=== PATIENT | female | born 1980 | race Caucasian/White ===

== ENCOUNTER 2022-08-15 18:17 | Emergency (ER) | payer OTHER, MEDICAID, SELFPAY ==
[2022-08-15 18:43] VITALS: BP 138/90; PULSE 82; RESP 16; TEMP 37.1; O2SAT 100
--- NOTE | 2022-08-15 19:28 | ED.URI ---
HPI - URI/Sore Throat General Chief Complaint: Upper Respiratory Infection Stated Complaint: nasal congestion Time Seen by Provider: 08/15/22 19:29 Source: patient and RN notes reviewed Mode of arrival: ambulatory Limitations: no limitations History of Present Illness HPI Narrative: 42 y/o female presented for c/o sinus congestion, drainage, cough and left ear pain for 3 days. Denies sob, wheezing, n/v/d/f/c. Endorses sick contact with flu. MD elicited complaint: cough Related Data Allergies Allergy/AdvReac Type Severity Reaction Status Date / Time codeine AdvReac Mild Nausea Verified 08/15/22 18:47 ibuprofen AdvReac Mild Ulcers Verified 08/15/22 18:47 Review of Systems Review of Systems: ROS per HPI PMFSH Family History Family History Mother Depression Hypertension Family history of gastrointestinal disorder Patient's mother is in good health Family history of irritable bowel syndrome Father Patient's father is in good health Family history of hearing loss Sibling Patient's brother is in good health Family history of attention deficit hyperactivity disorder (ADHD) Grandparent Family history of alcoholism Family history of lung cancer, Onset Age: 62 Family history of hearing loss Diabetes mellitus Other Family history of obesity Social History Social History Alcohol intake: never Exam Narrative: GENERAL: Ill-appearing, nontoxic EYES: PERRLA, conjunctivae clear ENT: Mucous membranes moist. Right TM pearly chavis with dull light reflex; Left TM red and bulging with purulent effusion; no tragal tenderness. CHEST: Clear to auscultation, breath sounds equal. HEART: Regular rate and rhythm. No murmur heard. SKIN: Warm, dry, no rash. NEURO: Alert and oriented x3. PSYCH: Normal mood and affect Course Course Emergency Course: Patient is aware of diagnosis, understands and agrees to treatment plan. Anticipatory guidance given. Patient agrees to follow-up as directed and is aware of reasons to seek care at the emergency department. Portions of this record may have been created with voice recognition software Level of Care: Express Care Visit Vital Signs Vital signs: Vital Signs Temperature 98.7 F 08/15/22 18:43 Pulse Rate 82 11/21/22 18:43 Respiratory Rate 16 08/15/22 18:43 Blood Pressure 138/90 08/15/22 18:43 Pulse Oximetry 100 08/15/22 18:43 Oxygen Delivery Room Air 08/15/22 18:43 Temperature 98.7 F 08/15/22 18:43 Pulse Rate 82 08/15/22 18:43 Respiratory Rate 16 08/15/22 18:43 Blood Pressure 138/90 08/15/22 18:43 Pulse Oximetry 100 08/15/22 18:43 Oxygen Delivery Room Air 08/15/22 18:43 reviewed MDM - URI/Sore Throat MDM Narrative Medical decision making narrative: Patient declines flu testing stating I don't have the flu. Advised supportive measures and signs/symptoms to go to the ER. Pt is appropriate for outpt treatment and f/u. Differential Diagnosis Differential diagnosis: Likely upper respiratory infection, sinusitis and viral infection Discharge Plan Discharge Clinical Impression: Otitis media Qualifiers: Otitis media type: suppurative Chronicity: acute Laterality: left Recurrence: non-recurrent Spontaneous tympanic membrane rupture: without spontaneous rupture Qualified Code(s): H66.002 - Acute suppurative otitis media without spontaneous rupture of ear drum, left ear Patient Disposition: Home, Self-Care Condition: Stable Instructions: Ear Infection (ED) Additional Instructions: Take antibiotics as directed. Recommend antihistamine such as Benadryl, Zyrtec or Radha for sinus congestion Flonase nasal spray, 1 spray in each nostril once daily until symptoms improve Symptomatic treatment includes: rest, fluids, and increase humidity of the air at home. Tylenol 1000mg every 8 hours as needed to reduc
== END 2022-08-15 19:45 | disposition home or self-care (01) ==
PROVIDERS: Emergency Provider Nurse Practitioner Family
DX: H66.002 Acute suppurative otitis media without spontaneous rupture of ear drum, left ear (principal)
CPT/HCPCS: 99213; G0463